=== PATIENT | female | born 1995 ===

== ENCOUNTER 2018-07-01 13:36 | Outpatient (CLI) | payer OTHER, MEDICAID, SELFPAY ==
[2018-07-01 14:32] LABS: Add Manual Diff / Slide Review NO; Basophils Absolute Auto 100 /uL (0-100); Basophils Percent Auto 0.5 % (0-2); Eosinophils Absolute Auto 100 /uL (0-450); Eosinophils Percent Auto 0.9 % (2-4); Hemoglobin 10.2 g/dL (12.0-16.0); Lymphocytes Absolute Auto 2000 /uL (1100-4500); Lymphocytes Percent Auto 18.7 % (25-40); Mean Corpuscular HGB Conc 31.8 % (30-36); Mean Corpuscular Hemoglobin 24.8 PG (26-34); Mean Corpuscular Volume 78.1 fL (80-100); Monocytes Absolute Auto 900 /uL (0-900); Monocytes Percent Auto 8.2 % (3-14); Neutrophils Absolute Auto 7700 /uL (1500-7000); Neutrophils Percent Auto 71.7 % (50-75); Platelet Count 263 X10^3/uL (150-400); Red Blood Cell Count 4.09 X10^6/uL (4.0-5.2); Red Cell Distribution Width 15.6 % (11.6-14.8); White Blood Cell Count 10.7 X10^3/uL (4.5-11.0)
[2018-07-01 14:46] LABS: Aspartate Aminotransferase 18 IU/L (14-36); Blood Urea Nitrogen 10 mg/dL (7-17); Estimated Glomerular Filt Rate > 60.0 mL/min (>60)
== END 2018-07-01 15:42 | disposition home or self-care (01) ==
LOC: LABOR 14:19 → OB 07-02 14:17
PROVIDERS: Visit Provider Obstetrics & Gynecology
DX: O14.93 Unspecified pre-eclampsia, third trimester (principal); Z3A.39 39 weeks gestation of pregnancy
CPT/HCPCS: 36415; 59025; 59050; 84112; 84450; 84550; 85025; G0378; G0379

== ENCOUNTER 2018-07-05 13:57 | Outpatient (CLI) | payer OTHER, MEDICAID, SELFPAY | END 2018-07-05 15:55 | disposition home or self-care (01) | LOC: LABOR 14:42 → OB 07-08 16:25 | PROVIDERS: Visit Provider Obstetrics & Gynecology | DX: O14.93 Unspecified pre-eclampsia, third trimester (principal); Z3A.39 39 weeks gestation of pregnancy | CPT/HCPCS: 59025; G0378; G0379 ==

== ENCOUNTER 2018-07-07 05:54 | Inpatient (IN) | payer OTHER, MEDICAID, SELFPAY ==
[2018-07-07] MEDS: LACTATED RINGERS 1,000 ML 100 ML IV (07:45)
--- NOTE | 2018-07-07 07:56 | PM.OBTRLD ---
Visit Information Visit Information Date of evaluation: 07/05/18 Primary OB Provider: Nya Ryan On-call OB Provider: Nya Ryan Reason for Evaluation: Yes non-stress test non-stress test reason: hypertension/pre-eclampsia Vital Signs Vital Signs: BP 129/77, P 103, T 98.9 R 18 PFSH Social History Smoking Status: Never smoker Social History Smoking Status: Never smoker Evaluation Evaluation Baseline heart rate: 140 Variability: Moderate (11-25) monitor accelerations: Present monitor decelerations: Absent Category of Tracing: I Cervical dilation (cm): 1 Cervical effacement (%): 75 station: -1 Diagnosis, Plan/Disposition Final Diagnosis (1) Gestational [-induced] hypertension without significant proteinuria, complicating childbirth: Current Visit: Yes Status: Acute (2) 39 weeks gestation of : Current Visit: Yes Status: Acute Plan/Disposition Plan: Assessment: 22-year-old 1 para 0 at 39-,6/7 weeks gestation with a category 1 nonstress test Gestational hypertension Plan: Discharged home Follow-up 3 days kick counts explained Signs and symptoms of preeclampsia reviewed OB Disposition: home
--- NOTE | 2018-07-07 08:32 | PM.OBHP.1 ---
OB HPI Date/Time Date of admission: 07/07/18 Date Patient Seen: 07/07/18 Time Patient Seen: 08:32 History of Present Condition Chief complaint: LABOR AND DELIVERY : 1 Para: 0 Estimated Date of Delivery: 07/06/18 Estimated Gestational Age (weeks): 40+1 Narrative: Leonor Arriola is a 22 year old female 1 para 0 at 40-,1/7 weeks gestation with spontaneous rupture of membranes at 4:30 a.m.. Occasional contractions. No vaginal bleeding. The amniotic fluid was clear. Indications Other reason(s) for admission: S ROM History of Present care: good care Dating criteria: LMP confirmed by 1st trimester US Ultrasounds: normal 1st trimester US and normal mid trimester US Obstetrical complications: gestational hypertension Medical complications: none Preadmission Labs Blood type: B (+) positive -: Antibody screen: negative, GBS status: positive, HBsAG: negative, HIV: negative and RPR/VDLR: negative -: Varicella: not immune HCT: 35 HCAB: negative Urine: 10-25,000 CFU 1 hr GTT: 98 Evaluation Evaluation Baseline heart rate: 135 Variability: Moderate (11-25) monitor accelerations: Present monitor decelerations: Absent Contraction Frequency (minutes): 10 Uterine Contraction Intensity: Mild Category of Tracing: I Non-invasive Membranes Rupture Test: positive PFSH Social History Smoking Status: Never smoker Social History Smoking Status: Never smoker Meds Home Medications Medication Instructions Recorded Confirmed Type cholecalciferol (vitamin D3) 1,000 1,000 unit PO DAILY 07/01/18 07/07/18 History unit capsule 1 tab PO DAILY 07/01/18 07/07/18 History vitamin,calcium,fdytyzqa-ohav-yafvy acid tablet Allergies Allergy/AdvReac Type Severity Reaction Status Date / Time No Known Drug Allergies Allergy Unverified 07/01/18 13:15 Exam Vital Signs (past 8 hours): Generally: A well-developed, well-nourished female, no acute distress Lungs: Clear to auscultation bilaterally Cardiovascular: Regular rate and rhythm Fundal height: 39 cm Estimated weight: 8 lb Extremities: 1+ edema, negative Homans Objective Labs Result Diagrams: 07/09/18 06:33 Assessment and Plan Assessment and Plan Assessment and Plan narrative: Assessment: 22-year-old 1 para 0 at 40-,1/7 weeks gestation with spontaneous rupture of membranes Plan: Pitocin augmentation of labor Epidural as necessary Expected management to spontaneous vaginal delivery
[2018-07-07] MEDS: PENICILLIN G POTASSIUM 5,000,000 UNIT in DEXTROSE 5% IN WATER 250 ML IV (08:50)
[2018-07-07 08:51] LABS: Add Manual Diff / Slide Review NO; Basophils Absolute Auto 100 /uL (0-100); Basophils Percent Auto 0.4 % (0-2); Eosinophils Absolute Auto 200 /uL (0-450); Eosinophils Percent Auto 1.2 % (2-4); Hematocrit 32.7 % (36-46); Hemoglobin 10.3 g/dL (12.0-16.0); Lymphocytes Absolute Auto 2400 /uL (1100-4500); Lymphocytes Percent Auto 18.2 % (25-40); Mean Corpuscular HGB Conc 31.5 % (30-36); Mean Corpuscular Hemoglobin 24.6 PG (26-34); Monocytes Absolute Auto 1100 /uL (0-900); Monocytes Percent Auto 8.3 % (3-14); Neutrophils Absolute Auto 9300 /uL (1500-7000); Neutrophils Percent Auto 71.9 % (50-75); Platelet Count 264 X10^3/uL (150-400); Red Blood Cell Count 4.19 X10^6/uL (4.0-5.2); Red Cell Distribution Width 15.8 % (11.6-14.8)
[2018-07-07] MEDS: OXYTOCIN PREMIX 30 UNIT/500 ML PLAST..BAG IV (10:56)
[2018-07-07] MEDS: PENICILLIN G POTASSIUM 3,000,000 UNIT/50 ML FROZ.PIGGY 100 UNIT IV ×3 (12:49→21:35)
[2018-07-07 14:52] VITALS: BP 124/78
[2018-07-07] MEDS: miSOPROStol 25 MCG TABLET VAG (21:36)
[2018-07-07] MEDS: ZOLPIDEM 5 MG TABLET 10 MG PO (21:36)
[2018-07-08] MEDS: PENICILLIN G POTASSIUM 3,000,000 UNIT/50 ML FROZ.PIGGY 100 UNIT IV ×5 (01:07→18:05)
[2018-07-08] MEDS: OXYTOCIN PREMIX 30 UNIT/500 ML PLAST..BAG IV (08:42)
[2018-07-08] MEDS: LACTATED RINGERS 1,000 ML 125 ML IV (17:20)
[2018-07-08] MEDS: OXYTOCIN 10 UNIT/ML VIAL IM (21:30)
--- NOTE | 2018-07-08 21:50 | PM.OBPRVD ---
Events: Prolonged Rupture of Membrane Delivery date: 07/08/18 Intrapartal events: Prolonged Labor > 20 hours Cervical ripening method: none Induction method: none Delivery augmentation: pitocin Delivery monitor: external FHT and external uterine Route of delivery: Episiotomy description: None L&D Laceration Description: Vaginal - 2nd Degree Delivery repair: vicryl and chromic Estimated blood loss (mL): 500 Anesthesia type: Epidural Complications: Moderate shoulder dystocia Narrative: The patient complete and pushed for 2 hr. At 9:15 p.m., a live male infant delivered spontaneously over an intact perineum. There was a moderate shoulder dystocia that was relieved with Shirley and suprapubic pressure. No nuchal cord. The remainder of the body delivered without difficulty and was placed on mom's abdomen. The cord was double clamped and cut. The baby was then taken to the warmer. The placenta delivered intact with a 3 vessel cord at 9:23 p.m.. The fundus was massaged to firm. The remainder of the Pitocin in the IV fluids was given. 10 units of IM Pitocin were given. A second-degree vaginal laceration was repaired with 2 0 Vicryl and 2 0 chromic in the usual fashion. The bladder was emptied of 500 cc of clear yellow urine. Hemostasis was achieved. The uterine bleeding subsided. Estimated blood loss 500 cc. Apgars 7 at 1 min and 8 at 5 min. Epidural analgesia. . Mom and infant stable to recovery. Plan for aftercare: To routine care
[2018-07-09 01:24] VITALS: TEMP 37.3
[2018-07-09] MEDS: IBUPROFEN 600 MG TABLET PO (01:24)
[2018-07-09 06:54] LABS: Hematocrit 24.2 % (36-46); Hemoglobin 7.7 g/dL (12.0-16.0)
[2018-07-09] MEDS: DOCUSATE 250 MG CAPSULE PO (09:48)
[2018-07-09] MEDS: PRENATAL VIT,CALC/IRON/FOLIC 1 TABLET 1 TAB PO (09:48)
--- NOTE | 2018-07-09 23:20 | PM.OBPN.1 ---
Subjective - OB Patient comments: no complaints and pain well controlled [place] baby status: doing well feeding status: exclusively breast feeding Date Patient Seen: 07/09/18 Time Patient Seen: 07:45 Exam Vital Signs (past 8 hours): Generally: Patient is sitting up in bed, nursing infant, no acute distress Fundal height U -1 Extremities: 1+ edema, negative Homans Objective Labs Result Diagrams: 07/09/18 06:33 Labs: Laboratory Results - last 24 hr 07/09/18 06:33 Hgb 7.7 L Hct 24.2 L Assessment & Plan (1) Gestational [-induced] hypertension without significant proteinuria, complicating childbirth: Status: Acute Current Visit: Yes (2) 39 weeks gestation of : Status: Acute Current Visit: Yes Plan day: 1 plan OB: routine care Time Spent With Patient Total time spent is greater than 50% in coordination of care (as documented) at patient's floor/unit and/or counseling patient: 15-24 minutes
[2018-07-10] MEDS: IBUPROFEN 600 MG TABLET PO (00:46)
[2018-07-10] MEDS: PRENATAL VIT,CALC/IRON/FOLIC 1 TABLET 1 TAB PO (08:58)
[2018-07-10] MEDS: DOCUSATE 250 MG CAPSULE PO (08:58)
--- NOTE | 2018-07-12 06:02 | PM.OBDS.1 ---
Discharge Providers Date of admission: 07/07/18 05:54 Discharge Date: 07/10/18 Consults: 07/09/18 01:08 Consult to Hand Packer/Packager Routine Comment: Discharge provider: Nya Ryan MD Summary Date Patient Seen: 07/10/18 Time Patient Seen: 07:45 Procedures: Pitocin augmentation of labor Spontaneous vaginal delivery Repair of first-degree vaginal laceration Hospital Course: In the patient is a 22-year-old 1 para 1 who presented on 07/07/2017 with spontaneous rupture of membranes without many contractions. She was started on Pitocin. She did not make much progress during that day. The Pitocin was discontinued. She received 1 dose of Cytotec overnight. The next morning Pitocin was restarted. She had a spontaneous vaginal delivery with a mild shoulder dystocia. She had a first-degree laceration which was repaired. Her course was unremarkable and she was discharged home on 07/10/2018. Peripartum Data Infant Delivery Method: Natural Vaginal Laceration description: Vaginal - 1st Degree Episiotomy description: None Procedures: Pitocin augmentation of labor Cytotec Epidural analgesia Spontaneous vaginal delivery First-degree laceration repair complications: none Discharge Diagnosis (1) Gestational [-induced] hypertension without significant proteinuria, complicating childbirth: Status: Acute (2) 39 weeks gestation of : Status: Acute Status at Discharge Cognitive/behavioral status at discharge: oriented Functional status at discharge: independent ambulation Overall status at discharge: patient is progressing back to baseline Time Spent with Patient Total time spent providing and/or coordinating discharge services: Less than 30 minutes Objective Labs Result Diagrams: 07/09/18 06:33 Discharge Plan Discharge Plan Patient Disposition: Home Discharge comment: Call with fever, chills or bleeding vaginally more than a pad in an hour Discharge Med Rec/Prescriptions Prescriptions: Continued cholecalciferol (vitamin D3) 1,000 unit capsule 1,000 unit PO DAILY RF: 0 prenat.vits,mery,zxt-mxmt-dekhp tablet 1 tab PO DAILY RF: 0 Follow up/Referrals: Nya Ryan MD [Physician] - 6 Weeks (Sunday,August 21, 2018 at 12 noon with ) Provider Discharge Instructions Diet: Regular Activity: No intercourse Skin/Wound/Dressing Care Report to your healthcare provider any signs of infection, such as:: chills, fever, increased pain and unusual drainage Visit Report/Discharge Packet Instructions: DI for Labor and Delivery, Vaginal Visit Report Forms: Stroke Signs & Symptoms Discharge Data Attending Provider: Nya Ryan Admit Date/Time: 07/07/18 05:54 Discharges patient from system. Discharge Date/Time: 07/10/18 12:45
== END 2018-07-10 12:45 | disposition home or self-care (01) | DRG 560 ==
PROVIDERS: Admitting Provider Obstetrics & Gynecology; Visit Provider Obstetrics & Gynecology
DX: O99.824 Streptococcus B carrier state complicating childbirth (principal); Z3A.40 40 weeks gestation of pregnancy; Z37.0 Single live birth; O66.0 Obstructed labor due to shoulder dystocia; O70.1 Second degree perineal laceration during delivery
CPT/HCPCS: 01967; 36415; 59050; 59200; 59409; 76815; 85014; 85018; 85025; 86850; 86900; 86901; G0379; J2540; J2590; J3010